=== PATIENT | male | born 1995 | race Caucasian/White ===

== ENCOUNTER 2019-10-14 15:08 | Emergency (ER) | payer MEDICAID ==
[~2019-10-14] VITALS: Ht 170.2 cm; Wt 117.9 kg
[2019-10-14 15:25] VITALS: BP 133/69
--- NOTE | 2019-10-14 15:31 | NUR ---
Rt eye watery, irritated, sore since Sunday Morning. Intially was itchy but now states rt eye feels dry but has watery discharge. Denies crusting. Sclera red. Pain level 6/10 described as "sore". Denies visual changes. Denies trauma. HX- none
[2019-10-14] MEDS ORDERED: TETRACAINE HCL/PF 0.5% OPTH 4 ML BTL OP ONE (15:50)
[2019-10-14] MEDS ORDERED: FLUORESCEIN OPTH STRIP 1 MG OP ONE (15:50)
--- NOTE | 2019-10-14 16:44 | NUR ---
Visual acuity testing results given to MARYCARMEN JOSEPH
[2019-10-14 17:00] VITALS: BP 138/79
--- NOTE | 2019-10-14 17:00 | NUR ---
Patient discharged with v/s stable. Written and verbal after care instructions given and explained. Patient alert, oriented and verbalized understanding of instructions. Ambulatory with steady gait. All questions addressed prior to discharge. ID band removed. Patient advised to follow up with PMD. Rx of Ibuprofen and Gentamicin given. Patient educated on indication of medication including possible reaction and side effects. Opportunity to ask questions provided and answered.
== END 2019-10-14 17:00 | disposition home or self-care (01) ==
LOC: MED 15:08
DX: H10.89 Other conjunctivitis (principal)
CPT/HCPCS: 99283

== ENCOUNTER 2022-07-03 08:44 | Emergency (ER) | payer MEDICAID ==
[~2022-07-03] VITALS: Ht 172.7 cm; Wt 120.2 kg
[2022-07-03 08:54] VITALS: BP 133/70
--- NOTE | 2022-07-03 09:56 | NUR ---
Patient discharged with v/s stable. Written and verbal after care instructions given and explained. Patient verbalized understanding. Ambulatory with steady gait. All questions addressed prior to discharge. Advised to follow up with PMD.
== END 2022-07-03 09:55 | disposition home or self-care (01) ==
LOC: MED 08:44
DX: S33.5XXA Sprain of ligaments of lumbar spine, initial encounter (principal); X58.XXXA Exposure to other specified factors, initial encounter; Y93.89 Activity, other specified; Y92.89 Other specified places as the place of occurrence of the external cause; Y99.8 Other external cause status
CPT/HCPCS: 99282

== ENCOUNTER 2022-08-07 05:20 | Emergency (ER) | payer MEDICAID ==
[~2022-08-07] VITALS: Ht 172.7 cm; Wt 117.5 kg
[2022-08-07 05:36] VITALS: BP 120/62
--- NOTE | 2022-08-07 06:28 | NUR ---
seen and examined by TALITA
--- NOTE | 2022-08-07 06:39 | NUR ---
PT RETURN FROM RADIOLOGY
[2022-08-07] MEDS ORDERED: IBUP-2213 PO (07:15)
== END 2022-08-07 07:47 | disposition home or self-care (01) ==
LOC: MED 05:20
DX: S43.402A Unspecified sprain of left shoulder joint, initial encounter (principal); Z79.899 Other long term (current) drug therapy; X50.0XXA Overexertion from strenuous movement or load, initial encounter; Y93.89 Activity, other specified; Y92.89 Other specified places as the place of occurrence of the external cause; Y99.8 Other external cause status
CPT/HCPCS: 73030; 99283

== ENCOUNTER 2022-12-19 19:16 | Emergency (ER) | payer MEDICAID ==
[~2022-12-19] VITALS: Ht 177.8 cm; Wt 123.4 kg
[~2022-12-19 19:16] MED LIST: IBUP-2213 PO
[2022-12-19 19:52] VITALS: BP 146/77
--- NOTE | 2022-12-19 22:15 | NUR ---
pt to bed 03
--- NOTE | 2022-12-19 22:35 | NUR ---
Received patient to ER w/ c/o left shoulder pain described as "burning". patient states had injured shoulder in July but has been working light duty recently. Patient last given cortisone shot on 12/02 but still w/ no relief in pain. Introduced self to patient, positioned for comfort. Bed to low position sr up, continue to monitor.
--- NOTE | 2022-12-19 23:29 | NUR ---
Dr. Gonsalez examining patient.
[2022-12-19] MEDS ORDERED: DICL100G5 TP (23:57)
[2022-12-19] MEDS ORDERED: IBUP-2213 PO (23:58)
[2022-12-20 00:28] VITALS: BP 131/80
--- NOTE | 2022-12-20 00:28 | NUR ---
patient ok to d/c home, given aci and rx verbalized understanding of f/u care and taking of rx medications.
== END 2022-12-20 00:28 | disposition home or self-care (01) ==
LOC: MED 19:16
DX: M25.512 Pain in left shoulder (principal); Z79.1 Long term (current) use of non-steroidal anti-inflammatories (NSAID)
CPT/HCPCS: 99281

== ENCOUNTER 2023-02-05 22:01 | Emergency (ER) | payer MEDICAID ==
[~2023-02-05] VITALS: Ht 172.7 cm; Wt 122.5 kg
[~2023-02-05 22:01] MED LIST changes: +DICL100G5 TP
[2023-02-05 23:00] VITALS: BP 138/88; PULSE 68; RESP 20; TEMP 98; O2SAT 97
--- NOTE | 2023-02-05 23:09 | NUR ---
PT IS IN THE CHAIR C
--- NOTE | 2023-02-05 23:30 | NUR ---
MD Díaz assessing pt.
[2023-02-06 01:00] VITALS: BP 134/73; PULSE 62; RESP 20; TEMP 98.2; O2SAT 97
--- NOTE | 2023-02-06 01:00 | NUR ---
Patient discharged with v/s stable. Written and verbal after care instructions given and explained. Patient verbalized understanding. Ambulatory with steady gait. All questions addressed prior to discharge. Advised to follow up with PMD. Work form provided to pt.
== END 2023-02-06 01:00 | disposition home or self-care (01) ==
LOC: MED 22:01
DX: S46.812A Strain of other muscles, fascia and tendons at shoulder and upper arm level, left arm, initial encounter (principal); Z79.899 Other long term (current) drug therapy; X58.XXXA Exposure to other specified factors, initial encounter; Y93.89 Activity, other specified; Y92.89 Other specified places as the place of occurrence of the external cause; Y99.8 Other external cause status
CPT/HCPCS: 99281

== ENCOUNTER 2023-07-11 22:47 | Emergency (ER) | payer MEDICAID ==
[~2023-07-11] VITALS: Ht 174 cm; Wt 107.0 kg
[~2023-07-11 22:47] MED LIST changes: +DICL100G32 TP; -DICL100G5 TP
[2023-07-11 23:04] VITALS: BP 123/76; PULSE 63; RESP 20; TEMP 98.1; O2SAT 97
[2023-07-12] MEDS ORDERED: KETOROLAC 30 MG/ML VIAL IM ONE (01:50)
[2023-07-12] MEDS ORDERED: NAPR-54 PO (02:23)
[2023-07-12] MEDS ORDERED: LID5T TP (02:23)
[2023-07-12] MEDS ORDERED: CYCL-711 PO (02:23)
== END 2023-07-12 02:49 | disposition home or self-care (01) ==
LOC: MED 22:47
DX: M54.50 Low back pain, unspecified (principal); Z79.899 Other long term (current) drug therapy; Z79.1 Long term (current) use of non-steroidal anti-inflammatories (NSAID)
CPT/HCPCS: 72100; 96372; 99283; J1885

== ENCOUNTER 2023-07-16 13:23 | Emergency (ER) | payer MEDICAID ==
[~2023-07-16] VITALS: Ht 167.6 cm; Wt 90.7 kg
[~2023-07-16 13:23] MED LIST changes: +CYCL-711 PO; +LID5T TP; +NAPR-54 PO
[2023-07-16 14:12] VITALS: BP 127/80; PULSE 61; RESP 8; TEMP 97; O2SAT 98
[2023-07-16] MEDS ORDERED: KETOROLAC 30 MG/ML VIAL IM ONE (15:50)
== END 2023-07-16 16:25 | disposition home or self-care (01) ==
LOC: MED 13:23
DX: S39.012A Strain of muscle, fascia and tendon of lower back, initial encounter (principal); X58.XXXA Exposure to other specified factors, initial encounter; Y93.89 Activity, other specified; Y92.89 Other specified places as the place of occurrence of the external cause; Y99.8 Other external cause status
CPT/HCPCS: 96372; 99283; J1885